=== PATIENT | male | born 1970 | race Caucasian/White ===

== ENCOUNTER 2020-05-05 13:39 | Outpatient (REF) | payer MEDICAID, SELFPAY ==
--- NOTE | ~2020-05-05 | US_ITS ---
EXAMINATION: US THYROID CLINICAL INFORMATION: Lymphadenitis. Concern for mass right thyroid. COMPARISON: None TECHNIQUE: Linear transducer kaiser-scale and color Doppler examination with attention to the region of the thyroid. FINDINGS: SIZE: Measurements of the thyroid lobes and nodules are given in sagittal, anteroposterior and transverse dimensions respectively. Right Thyroid Lobe: 4.4 x 1.8 x 1.9 cm, volume 7.7 mL. Parenchyma: The gland echotexture is homogeneous. Thyroid vascularity is normal. Left Thyroid Lobe: 4.2 x 1.8 x 1.7 cm, volume 6.6 mL. Parenchyma: The gland echotexture is homogeneous. Thyroid vascularity is normal. Isthmus: 0.4 cm in maximum AP dimension. No focal thyroid nodule is seen. NODES: There is a small right neck lymph node measuring 2.8 x 1.2 x 1.5 cm. There is an echogenic central medulla, suggestive of a normal lymph node. No other lymph node seen. US/US thyroid IMPRESSION: Unremarkable thyroid gland ultrasound. Benign right neck lymph node. ACR TI-RADS RECOMMENDATION REFERENCE: Ultrasound-guided fine-needle aspiration, followup ultrasound, no further follow up. * TR1 (0 point) and TR 2 (2 points): No FNA or follow up * TR3 (3 points): FNA if more than or equal to 2.5 cm in maximum dimension, follow up ultrasound in 1, 3 and 5 years if 1.5 to 2.4 cm in maximum dimension. * TR4 (4-6 points): FNA if more than or equal to 1.5 cm in maximum dimension, follow up ultrasound in 1, 2, 3 and 5 years if 1 to 1.4 cm in maximum dimension. * TR5 (more than or equal to 7 points): FNA if more than or equal to 1 cm in maximum dimension, follow up ultrasound every year for 5 years if 0.5 to 0.9 cm in maximum dimension. * TR3, TR4 or TR5 nodules that are below the size threshold for follow up receive no follow up.
== END 2020-05-05 13:40 | disposition home or self-care (01) ==
LOC: HO.US 13:39
PROVIDERS: Visit Provider Nurse Practitioner
DX: L04.1 Acute lymphadenitis of trunk (principal)
CPT/HCPCS: 76536

== ENCOUNTER 2022-12-07 09:37 | Outpatient (REF) | payer MEDICAID, SELFPAY ==
[2022-12-07 11:27] LABS: MANUAL DIFF FLAG NO
[2022-12-07 11:49] LABS: Basophils Percent Auto 0.3 % (0-2); Hemoglobin 10.2 g/dl (14.0-18.0); Imm Gran Abs Auto 0.02 X10*3/uL (0.00-0.03); Imm Gran Pct Auto 0.3 % (0.0-0.4); Lymphocytes Absolute Auto 1.3 X10*3/uL (1.2-4.9); Lymphocytes Percent Auto 20.9 % (20-40); Mean Corpuscular Hemoglobin 24.2 pg (27.0-33.0); Mean Corpuscular Volume 80.8 fL (80.0-98.0); Mean Platelet Volume 9.9 fL (9.4-12.4); Monocytes Absolute Auto 0.6 X10*3/uL (0.1-1.2); Monocytes Percent Auto 10.1 % (2-11); Neutrophils Absolute Auto 4.3 x10*3/uL (2.0-8.3); Neutrophils Percent Auto 68.4 % (45-73); Platelet Count 207 X10*3/uL (160-400); Red Blood Count 4.21 X10*6/uL (4.60-5.80); Red Cell Distribution Width 14.2 % (11.0-16.0); White Blood Count 6.3 X10*3/uL (4.8-10.8)
[2022-12-07 11:51] LABS: Estimated Average Glucose 103 mg/dL; Hemoglobin A1c % 5.2 % (<6.0)
[2022-12-07 11:59] LABS: Alanine Aminotransferase 21 U/L (0-40); Albumin Level 4.6 g/dL (3.5-5.0); Alkaline Phosphatase 109 U/L (39-117); Anion Gap 16 (12-20); Aspartate Amino Transferase 23 U/L (5-37); Bilirubin Total 0.3 mg/dL (0.0-1.0); Blood Urea Nitrogen 26 mg/dL (9-16); Calcium 10.2 mg/dL (8.4-10.2); Carbon Dioxide 30 mmol/L (22-29); Chloride 99 mmol/L (96-108); Cholesterol 197 mg/dL (<200); Estimated Glomerular Filt Rate 58; Glucose Random 106 mg/dL (60-115); HDL Cholesterol 60 mg/dL (>40); LDL Cholesterol Calculated 99 mg/dL (<100); Potassium 4.7 mmol/L (3.3-5.1); Sodium 140 mmol/L (135-145); Total Protein 8.5 g/dL (6.5-8.0); Triglycerides 191 mg/dL (<150)
[2022-12-07 12:24] LABS: TSH reflex Free T4 2.08 uIU/mL (0.32-4.0)
[2022-12-07 12:28] LABS: Prostate Specific Antigen 0.34 ng/mL (<0.05-4.0)
[2022-12-07 12:29] LABS: HIV AB/AG Nonreactive (Nonreactive); HIV Num 1 0.06 S/CO (0.00-0.99); ~HepC Num1 0.06 S/CO (0.00-0.79); ~Hepatitis C Antibody Nonreactive (Nonreactive)
[2022-12-10 09:48] LABS: RPR Rapid Plasma Reagin NON-REACTIVE (NON-REACTIVE)
== END 2022-12-07 09:38 | disposition home or self-care (01) ==
LOC: HO.HHCL 09:37
PROVIDERS: Visit Provider Nurse Practitioner Primary Care
DX: Z00.00 Encounter for general adult medical examination without abnormal findings (principal); Z11.4 Encounter for screening for human immunodeficiency virus [HIV]; Z12.5 Encounter for screening for malignant neoplasm of prostate; Z11.3 Encounter for screening for infections with a predominantly sexual mode of transmission; R23.2 Flushing; R06.02 Shortness of breath; I10 Essential (primary) hypertension; R73.01 Impaired fasting glucose; R39.16 Straining to void
CPT/HCPCS: 36415; 80053; 80061; 83036; 84153; 84443; 85025; 86592; 86803; 87389

== ENCOUNTER 2023-08-19 10:45 | Outpatient (REF) | payer MEDICAID, SELFPAY ==
[2023-08-19 11:50] LABS: Hematocrit 35.7 % (42.0-52.0); Hemoglobin 11.6 g/dl (14.0-18.0)
[2023-08-19 12:22] LABS: Anion Gap 13 (12-20); Blood Urea Nitrogen 27 mg/dL (9-16); Carbon Dioxide 29 mmol/L (22-29); Chloride 105 mmol/L (96-108); Estimated Glomerular Filt Rate 53; Glucose Random 92 mg/dL (60-115); Iron 76 mcg/dL (45-160); Percent Iron Saturation 23 % (15-50); Potassium 4.5 mmol/L (3.3-5.1); Sodium 142 mmol/L (135-145); Total Iron Binding Capacity 326 mcg/dL (228-428); Unsaturated Iron Binding 250 ug/dL
[2023-08-19 12:52] LABS: Vitamin B12 180 pg/mL (200-900)
== END 2023-08-19 10:46 | disposition home or self-care (01) ==
LOC: HO.HHCL 10:45
PROVIDERS: Visit Provider Nurse Practitioner Primary Care
DX: D64.9 Anemia, unspecified (principal); I10 Essential (primary) hypertension
CPT/HCPCS: 36415; 80048; 82607; 83540; 85014; 85018

== ENCOUNTER 2023-12-17 11:38 | Outpatient (AMB) | payer MEDICAID, SELFPAY ==
--- NOTE | 2023-12-17 11:40 | MHC.OFFVIS ---
Intake Visit Reasons: [facility] referral to Vascular to edema/ US Intake Note: New patient presents for edema and . States he has bilateral leg swelling. Also has bilateral ankle swelling. Accompanied by: Self / Same As Patient Allergies No Known Allergies Allergy (Unverified 11/05/19 16:28) none Allergy (Unknown, Uncoded 05/19/18 00:00) HPI HPI [facility] referral to Vascular to edema/ US: Details: [employer] used. Nima, a pleasant 53-year-old Kazakh-speaking only male patient, is presenting today for ongoing bilateral peripheral edema for over 6 months. He states he is also having pain which is worse with any activity. Complaints include pain over varicosities, swelling of lower extremities, cramping, fatigue, and heaviness of the lower extremities. It has been affecting their daily activities including walking, standing, and any activity. It is noted equally in both legs. Patient denies any previous venous surgery or injections. Patient denies any history of DVT/ PE. Patient denies any history of phlebitis. Trial of compression includes - compression stockings help a little bit; elevation only works minimally. They now present for vascular evaluation regarding their varicose veins. Review of Systems Const Reports as per HPI and Denies weakness ENT Reports Normal hearing present and Denies dizziness Card Reports as per HPI, Denies chest pain, Denies chest pain at rest, Denies chest pain with activity, Denies dyspnea and Denies dyspnea on exertion Resp Reports as per HPI, Denies cough, Denies dyspnea and Denies dyspnea on exertion GI Reports as per HPI, Denies abdominal pain, Denies nausea and Denies vomiting Musc Denies numbness Skin/Breast Reports as per HPI, Denies erythema and Denies wounds Neuro Reports Normal hearing present, Denies dizziness, Denies numbness, Denies Sensory deficit (Neuro) and Denies weakness Psych Reports no additional complaints Endo Reports no additional complaints Physical Exam Const General: healthy appearing and no acute distress Orientation/consciousness: patient oriented x3 HEENT Head: Yes normal to inspection Ears: hearing grossly normal bilaterally Mouth: Normal oral and palatal mucosa present Resp Effort & Inspection: normal respiratory effort and able to speak in complete sentences Auscultation: clear to auscultation bilaterally Cardio Jugular venous distension: no JVD Rate: regular rate Rhythm: regular rhythm Heart sounds: S1 normal heart sound present and S2 normal heart sound present Bruits: no abdominal aortic bruits, no carotid bruits, no femoral bruits and no renal bruits Peripheral pulses: Peripheral pulses 2+ throughout GI Inspection: Yes normal to inspection Palpation (GI): No Abdominal aortic bruit present Skin General skin exam: no rashes or lesions noted Wounds: no wounds Hair: normal Neuro General: patient oriented x3 Cranial nerves: Yes Normal hearing present Cognition (Neuro): normal cognition Gait exam (Neuro): Normal gait present Motor exam (neuro): 5/5 motor strength present throughout Sensory Exam: No Sensory deficit (Neuro) Extrem Other: Bilateral lower extremities: 1+ pitting edema with venous stasis dermatitis. Palpable DP pulses. Spider veins noted upper thigh areas bilaterally. CEAP: C - 4 E - primary A - superficial P - reflux General: Yes normal to inspection, Yes full ROM, Yes capillary refill normal and Yes normal gait Assessment & Plan Assessment & Plan (1) Varicose veins of both lower extremities with inflammation: Code(s): I83.11 - Varicose veins of right lower extremity with inflammation; I83.12 - Varicose veins of left lower extremity with inflammation Category: Medical Plan: Nima is presenting today with with over 6 months' worth of worsening pain in swelling in his bilateral lower extremities. He has used compression stockings with some relief and elevation with minimal relief. In short, the patient has evidence of venous insufficiency. I have discussed the pathophysiology with the patient. In addition I have provided informational material regarding venous disease to the patient. We have discussed conservative measures including compression, elevation, and exercise. I have also provided a handout (in Croatian, sandblaster paint sprayer explained) regarding appropriate use of compression stockings and where to purchase good compression stockings as well. I have taken the liberty of ordering venous insufficiency testing with the patient. They will follow up with me after testing. The patient had an opportunity to ask questions regarding the treatment plan. All questions were answered. No major barriers to understanding were identified. The patient expressed understanding and agreement with the above treatment plan. The patient is aware they should contact our office by phone for worsening of the current condition or the appearance of new symptoms. Thank you for allowing me to participate in the vascular care of this patient. If you have any questions or concerns regarding the treatment for the above condition please do not hesitate to contact me. The office telephone contact is [phone]. This note is constructed using voice recognition software. While every effort has been made to ensure accuracy, dredge mechanic errors may have been included. Thank you for allowing me to participate in the care of your patient. Yours sincerely, HA Estrada Orders: Orders US venous duplex LE BI 1 Week I83.11 - Varicose veins of right lower extremity with inflammation, I83.12 - Varicose veins of left lower extremity with inflammation Coding Level of Care Code New Pt New Pt Level 4 (89043) Patient Type New Diagnoses Varicose veins of both lower extremities with inflammation I83.11; I83.12
== END 2023-12-17 11:54 | disposition home or self-care (01) ==
LOC: HO.HVS 11:38
PROVIDERS: Visit Provider Surgery Vascular Surgery
DX: I83.11 Varicose veins of right lower extremity with inflammation (principal); I83.12 Varicose veins of left lower extremity with inflammation
CPT/HCPCS: 99203

== ENCOUNTER → 2023-12-17 11:38 | Outpatient (BNVA) | payer MEDICAID, SELFPAY | PROVIDERS: Visit Provider Surgery Vascular Surgery | DX: I83.11 Varicose veins of right lower extremity with inflammation (principal); I83.12 Varicose veins of left lower extremity with inflammation | CPT/HCPCS: 99202 ==

== ENCOUNTER 2024-01-01 13:02 | Outpatient (REF) | payer MEDICAID, SELFPAY ==
--- NOTE | ~2024-01-01 | US_ITS ---
EXAMINATION: US LOWER EXTREMITY VENOUS (REFLUX EXAM), BILATERAL CLINICAL INDICATION: Chronic venous insufficiency with varicose veins, inflammation COMPARISON: None. TECHNIQUE: Color flow triplex imaging and compression Doppler was performed to evaluate both the deep and the superficial systems bilaterally. To evaluate the superficial system, the examination was performed in the upright position. Color-flow Doppler ultrasound and compression ultrasound were utilized. In addition, maneuvers were utilized to demonstrate reflux. FINDINGS: 1. DEEP VENOUS ULTRASOUND OF THE RIGHT LOWER EXTREMITY: Common Femoral Vein: Compressible, normal respiratory variation and augmented flow. Femoral Vein: Compressible, normal color flow and augmentation. Popliteal Vein: Compressible, normal augmentation. Deep Reflux: There is no evidence of reflux in the deep system in either the common femoral vein, superficial femoral or the popliteal vein. There is no evidence of a Desai's cyst. 2. SUPERFICIAL ULTRASOUND WITH DOPPLER OF RIGHT LOWER EXTREMITY: GREAT SAPHENOUS VEIN: Saphenofemoral Junction: 0.7 cm; Reflux: 0 ms Proximal Thigh: 0.6 cm; Reflux: 0 ms Mid Thigh: 0.3 cm; Reflux: 0 ms Above Knee: 0.3 cm; Reflux: 0 ms At Knee: 0.6 cm; Reflux: 3456 ms Below Knee: 0.4 cm; Reflux: 3544 ms Mid Calf: 0.3 cm; Reflux: 0 ms Ankle: 0.3 cm; Reflux: 0 ms DUPLICATED MEDIAL GREAT SAPHENOUS VEIN: Diameter: 0.4 cm Reflux: None DUPLICATED LATERAL GREAT SAPHENOUS VEIN: Diameter: None imaged Reflux: NA SMALL SAPHENOUS VEIN: Saphenopopliteal Junction: 0.2 cm; Reflux: 0 ms Proximal: 0.2 cm; Reflux: 0 ms Distal: 0.2 cm; Reflux: 0 ms VEIN OF GIACOMINI: Size: NA Reflux: NA PERFORATORS: Location: None significant Size: NA Reflux: NA VARICOSITIES: Location: At knee and proximal calf off GSV Size: 0.3-0.4 cm Reflux: Ranging from 3284 to 3404 ms 3. DEEP VENOUS ULTRASOUND OF THE LEFT LOWER EXTREMITY: Common Femoral Vein: Compressible, normal respiratory variation and augmented flow. Femoral Vein: Compressible, normal color flow and augmentation. Popliteal Vein: Compressible, normal augmentation. Deep Reflux: There is no evidence of reflux in the deep system in either the common femoral vein, superficial femoral or the popliteal vein. There is no evidence of a Desai's cyst. 4. SUPERFICIAL ULTRASOUND WITH DOPPLER OF LEFT LOWER EXTREMITY: GREAT SAPHENOUS VEIN: Saphenofemoral Junction: 0.8 cm; Reflux: 0 ms Proximal Thigh: 0.5 cm; Reflux: 0 ms Mid Thigh: 0.3 cm; Reflux: 0 ms Above Knee: 0.3 cm; Reflux: 0 ms At Knee: 0.3 cm; Reflux: 0 ms Below Knee: 0.2 cm; Reflux: 0 ms Mid Calf: 0.2 cm; Reflux: 0 ms Ankle: 0.2 cm; Reflux: 0 ms DUPLICATED MEDIAL GREAT SAPHENOUS VEIN: Diameter: None imaged Reflux: NA DUPLICATED LATERAL GREAT SAPHENOUS VEIN: Diameter: 0.4 cm Reflux: None SMALL SAPHENOUS VEIN: Saphenopopliteal Junction: 0.3 cm; Reflux: 0 ms Proximal: 0.3 cm; Reflux: 0 ms Distal: 0.2 cm; Reflux: 0 ms VEIN OF GIACOMINI: Size: NA Reflux: NA PERFORATORS: Location: Proximal thigh Size: 0.3 cm Reflux: None VARICOSITIES: Location: Posterior Size: 0.3 cm Reflux: None US/US venous duplex LE BI IMPRESSION: 1. Right: Focal reflux in the great saphenous vein at the knee and below the knee with associated varicosities. 2. Left: No significant venous insufficiency or reflux. Electronically signed by: Obi Noe MD 01/29/2024 01:19 PM EST
== END 2024-01-01 13:03 | disposition home or self-care (01) ==
LOC: HO.US 13:02
PROVIDERS: Visit Provider Physician Assistant Surgical
DX: I83.11 Varicose veins of right lower extremity with inflammation (principal); I83.12 Varicose veins of left lower extremity with inflammation
CPT/HCPCS: 93970

== ENCOUNTER 2024-11-18 09:54 | Outpatient (REF) | payer MEDICAID, SELFPAY ==
--- OUTSIDE RECORDS SUMMARY | 2024-11-18 10:57 | XMS_ITS | Encounter Summary ---
Author Organization [employer] Address [address] [place] [address] Care Team Providers Care Silk Conditioner Name Role Phone Mita Mcneil Primary Care Provider [phone] Reason for Visit * Reason Comments Med Refill Encounter Details Date Type Department Care Team ([facility] st Contact Info) Description 10/13/2024 Refill [facility] MEDICINE [address], [place] [phone] Mita Mcneil ANP [address], [place] [phone] Essential hypertension Social History Tobacco Use Types Packs/Day Years Used Date Smoking Tobacco: Never Smokeless Tobacco: Never Alcohol Use Standard Drinks/Week Comments Yes 0 (1 standard drink = 0.6 oz pur e alcohol) Depression Answer Date Recorded Patient Health Questionnaire-9 Score 7 09/19/2023 Patient Health Questionnaire-9 Score 7 09/19/2023 Last PHQ-9: Questionnaire Data Not on file 0 09/19/2023 Housing Stability Answer Date Recorded What is your housing situation today? I have breana long 12/04/[address] you li ve. Do you have problems with any of the following? None of the above 12/04/2022 Food Insecurity Answer Date Recorded Within the past 12 months, y ou worried that your food would run out before you got money to buy more: Sometimes True 2024 Within the past 12 months,th e food you bought just didn't last and you didn't have enough money to get more: Sometimes True 03/10/2024 Transportation Answer Date Recorded In the past 12 months, has l ack of transportation kept you from medical appts, meetings, work or from getting things needed for daily living? Yes, it has kept me from medical appointments or getting medications. 09/10/2023 Utilities Answer Date Recorded In the past 12 months, has t he electric, gas, oil or water company threatened to shut off services in your home? No 12/04/2022 Depression Answer Date Recorded Patient Health Questionnaire-2 Score 3 09/19/2023 Internet Access Answer Date Recorded Internet Access Q1 Yes 09/15/2024 Internet Access Q2 Not on file 09/15/2024 Sex and Gender Information Value Date Recorded Sex Assigned at Male 12/18/2021 10:15 AM EDT Legal Sex Male 10:15 AM EDT Gender Identity Male 12/18/2021 10:15 AM EDT Sexual Orientation Straight 12/18/2021 10 :15 AM EDT documented as of this encounter Plan of Treatment Upcoming Encounters Date Type Department Care Team (Late st Contact Info) Description 01/11/2025 11:00 AM EST Office Visit [facility] MEDICINE [address] [place] [phone] Mita Mcneil ANP [address] [place] [phone] documented as of this encounter Visit Diagnoses Diagnosis Essential hypertension Unspecified essential hypertension documented in this encounter Additional Health Concerns Assessment Noted Time PHQ-9 Depression Total Score: 7 09/19/19 24 10:05 AM EDT documented as of this encounter Care Teams Silk Conditioner Relationship Specialty Start Date End Date Mita Mcneil ANP [address] [place] [id number] PCP - General Family Medicine 10/12/21 documented as of this encounter
--- OUTSIDE RECORDS SUMMARY | 2024-11-18 10:57 | XMS_ITS | Clinical Summary ---
Author Organization [employer] Address [address] [facility] [address] [place] [address] Care Team Providers Care Cable Tender Name Role Phone Mita Mcneil Primary Care Provider [phone] Allergies No known active allergies Medications Blood Pressure kitIndications:E ssential hypertension 1 kit in the morning. 1 kit 3 Active polyethylene glycol, PEG, 3350 (MiraLax) 17 GM/SCOOP powderIndication s:Chronic constipation take 1 scoop every day as needed for constipation, mixed with 8 oz. water, juice, soda, coffee or tea 510 g 2 3 Active ferrous sulfate 325 (65 Fe) MG tabletIndication s:Anemia, unspecified type TAKE 1 TABLET BY ORAL ROUTE EVERY OTHER DAY WITH VITAMIN C FOR IRON DEFICIENCY ANEMIA 90 tablet 1 5 Active Ascorbic Acid (vitamin C) 250 MG tabletIndication s:Anemia, unspecified type Take 1 tablet (250 mg) by mouth every other day. 45 tablet 5 Active polycarbophil (FiberCon) 625 MG tabletIndication s:Constipation, unspecified constipation type 0.5-1 tab once daily as needed for constipation 90 tablet 1 5 Active Cyanocobalamin (B-12) 1000 MCG tablet controlled-relea seIndications:Co balamin deficiency TOME 1 TABLETA POR VIA ORAL TODOS [place] 90 tablet 1 5 Active lisinopril-hydro CHLOROthiazide 20-25 MG tabletIndication s:Essential hypertension TOME 1 TABLETA POR VIA ORAL TODOS [place] 90 tablet 1 5 Active omeprazole (PriLOSEC) [address] capsuleIndicatio ns:Epigastric pain Take 1 capsule (20 mg) by mouth before breakfast and before evening meal. Do not crush or chew. 180 capsule 1 5 025 Active Diclofenac Sodium (Voltaren) 1 % gelIndications:C hronic bilateral low back pain without sciatica Apply up to 4x/d to affected joint(s) for pain/swelling 100 g 2 5 Active acetaminophen (Tylenol Extra Strength) 500 MG tabletIndication s:Chronic bilateral low back pain without sciatica Take 2 tablets (1,000 mg) by mouth every 8 (eight) hours if needed for mild pain or moderate pain. No more than 6 tabs per 24 hrs. 120 tablet 1 5 Active Active Problems Problem Noted Date Diagnosed Date Obesity (BMI 30-39.9) 05/27/2018 12/03/2022 Cobalamin deficiency 06/03/2012 12/03/2022 Epigastric pain 06/03/2012 12/03/2022 Essential hypertension 06/03/2012 Impaired fasting glucose 06/03/2012 023 Microalbuminuria 06/03/2012 12/03/2022 Polysubstance abuse 06/03/2012 12/03/2022 Vitamin D deficiency 06/03/2012 12/03/2022 Impotence of organic origin 07/31/201111/18 Opioid dependence 07/27/2011 12/03/2022 Encounters Date Type Department Care Team Description 10/26/2024 Telephone [facility] [address] [place] [phone] Mita Mcneil ANP chart prep 10/13/2024 Refill [facility] [address] [place] [address] Mita Mcneil ANP Essential hypertension from Last 3 Months Immunizations Immunization Administration Dates Next Due Hep A, Adult 10/05/2008,02/18/2008 Hep B, adult 02/18/2008,11/06/2006,02/21/1998 Influenza injectable quadriv alent preservative free 12/04/2022,03/30/2021,04/17/2018 Influenza, IIV3, injectable 01/04/2012 MMR 01/18/2007,02/21/1998 Pfizer Covid-19 Vaccine 12+ Bivalent 02/09/2022 Pneumococcal Polysaccharide PPSV23 02/16/2011 TD (adult), 2 Lf tetanus tox oid, preservative free, adsorbed 12/04/2022,01/18/2007 Tdap 02/16/2011 Varicella 02/16/2011 Social History Tobacco Use Types Packs/Day Years Used Date Smoking Tobacco: Never Smokeless Tobacco: Never Tobacco Cessation:Counseling Given: Not Answered Alcohol Use Standard Drinks/Week Comments Yes 0 [...] Orientation Straight 12/18/2021 10 :15 AM EDT Last Filed Vital Signs Vital Sign Reading Time Taken Comments Blood Pressure 140/92 07/24/2024 1:23 PM EDT Pulse 91 07/24/2024 1:20 PM EDT Temperature 36.2 C (97.1 F) 07/24/2024 1:20 PM EDT Respiratory Rate 20 07/24/2024 1:20 PM EDT Oxygen Saturation 96% 07/24/2024 1:20 PM EDT Inhaled Oxygen Concentration - - Weight 117 kg (257 lb 6.4 oz) 07/24/2024 1:20 PM EDT Height 177.8 cm (5' 10 ) 07/24/2024 1:20 PM EDT Body Mass Index 36.93 07/24/2024 1:20 PM EDT Plan of Treatment Upcoming Encounters Date Type Department Care Team (Late st Contact Info) Description 01/11/2025 11:00 AM EST Office Visit [facility] [address], [place] [phone] Mita Mcneil, ANP [address] [place], [place] [phone] Health Maintenance Due Date Last Done Comments CT Colonography 1971 FIT DNA/Cologuard 1971 FIT 1971 FOBT 1971 Sigmoidoscopy 1971 Pneumococcal Vaccine: 50+ Years (2 of 2 - PCV) 2021 02/16/2011 Zoster Vaccines (1 of 2) 2021 Colonoscopy 07/04/2023 07/03/2018 Colorectal Cancer Screening 07/04/2023 Depression Screening 09/18/2024 09/19/2023, 09/19/19 24 COVID-19 Vaccine ( season) 2024 02/09/2022, 10/10/2020, 08/30/2020 Influenza Vaccine (#1) 2024 3, 03/30/2021, 04/17/2018, Additional history exists SDOH Screening 03/10/2025 03/10/2024 Alcohol/Substance Use Screening 03/24/2025 03/24/2024 Disability Screening 07/24/2025 07/24/2024 Tobacco Screening 07/24/2025 07/24/2024 Lipid Panel 12/08/2027 12/07/2022, 04/11/2020 DTaP/Tdap/Td Vaccines (3 - Td or Tdap) 12/04/2032 12/04/2022, 02/16/2011, 01/18/2007 RSV Patients and Patients Aged 60 years or older (1 - 1-dose 75+ series) 2046 Hepatitis B Vaccines Completed 02/18/2008, 11/06/2006, 02/21/1998 Hepatitis A Vaccines Aged Out 10/05/2008, 02/18/20 08 No longer eligible based on patient's age to complete this topic HIV Screening Completed 12/07/2022 Hepatitis C Screening Completed 12/07/2022 HIB Vaccines Aged Out No longer eligi ble based on patient's age to complete this topic HPV Vaccines Aged Out No longer eligi ble based on patient's age to complete this topic IPV Vaccines Aged Out No longer eligi ble based on patient's age to complete this topic Meningococcal B Vaccine Aged Out No l onger eligible based on patient's age to complete this topic Meningococcal Vaccine Aged Out No xavier verna eligible based on patient's age to complete this topic RSV under 20 months Aged Out No longe r eligible based on patient's age to complete this topic Rotavirus Vaccines Aged Out No longer eligible based on patient's age to complete this topic Procedures Procedure Name Priority Date/Time Associated Diagnosis Comments HEPATITIS C AB W/REFL TO HCV RNA, QN, PCR Routine 12/07/2022 9:45 AM EDT Routine screening for STI (sexually transmitted infection) HIV ANTIBODY/ANTIGEN ([place] DPH) Routine 12/07/2022 9:45 AM EDT LIPID PANEL, STANDARD Routine 12/07/2022 9:45 AM EDT Essential hypertension HM COLONOSCOPY Routine 07/03/2018 from Last 3 Months or Most Recently Relevant to Health Maintenance Results * HIV Ab/Ag ([place] D[facility]) (12/07/2022 9:45 AM EDT) HIV AB/AG Nonreactive Nonreactive [facility] Comment:HIV-1 p24 Ag and/or HIV-1/HIV-2 Ab not detected.A test result that is nonreactive does not exclude thepossibility of exposure to or infection with HIV-1 and/orHIV-2. Nonreactive results in this assay for individualswith prior exposure to HIV-1 and/or HIV-2 may be due toantigen and antibody levels that are below the limit ofdetection of this assay.The [employer] HIV Ag/Ab Combo assay result andsupplemental assay results should be interpreted inconjunction with the patient's clinical presentation,history and other laboratory results. If the results areinconsistent with clinical evidence, additional testing issuggested to confirm the result. 12/07/2022 9:45 AM EDT 12/07/2022 11:24 AM EDT Mita Mcneil [facility] BLOOD ORDERABLES Final Resul t Performing Organization Address [facility] Co de Phone Number [facility] [address] [place] [phone] * Hepatitis C Antibody with Reflex to HCV, RNA, Quantitative, Real-Time PCR (12/07/2022 9:45 AM EDT) Hepatitis C Antibody Nonreactive Nonreactive [facility] Comment:Antibodies to HCV no t detected; does not exclude early acuteHCV infection. Blood Venous blood specimen / Unknown 12/07/2022 9:45 AM EDT 12/07/2022 11:24 AM EDT Mita Mcneil [facility] BLOOD ORDERABLES Final Resul t Performing Organization Address [facility] Co de Phone Number [facility] [address] [place] [phone] * (ABNORMAL) Lipid Panel, Standard (12/07/2022 9:45 AM EDT) Triglycerides 191(H) <150 mg/dL [facility] Comment:Desirable Triglyceri de: less than 150 mg/dLBorderline High Triglyceride 150-199 mg/dLHigh Triglyceride: 200-499 mg/dLVery High Triglyceride: greater than or equal to 5OO mg/dL Cholesterol 197 <200 mg/dL [facility] Comment:Desirable Cholestero l: less than 200 mg/dLBorderline High Cholesterol: 200-239 mg/dLHigh Cholesterol: greater than 239 mg/dL LDL Cholesterol Calculated 99 <100 mg/dL [facility] Comment:Desirable LDL: less than 100 mg/dLNear Optimal/Above Optimal LDL: 110- 129 mg/dLBorderline High LDL: 130-159 mg/dLHigh LDL: 160-189 mg/dLVery High LDL: greater than or equal to 190 mg/dL HDL Cholesterol 60 >40 mg/dL [facility] Comment:Desirable HDL: great er than 40 mg/dL Note: This HDL assay may give artificially low results in patients with liver disease. Blood Venous blood specimen / Unknown 12/07/2022 9:45 AM EDT 12/07/2022 11:24 AM EDT [facility] BLOOD ORDERABLES Final Resul t [facility] [address] [place] [address] [phone] * (ABNORMAL) Colonoscopy (07/03/2018) Colonoscopy Abnormal(A ) Normal Historical Provider HEALTH MAINTENANCE Final Result from Last 3 Months or Most Recently Relevant to Health Maintenance Insurance [facility] C3 * Guarantor: Nima Gee Account Type Relation to Patient Date of Phone Billing Address Personal/Family Self [address] [place], [place] Care Teams Cable Tender Relationship Specialty Start Date End Date Mita Mcneil ANP [address] [place] [phone] PCP - General Family Medicine 10/12/21
[2024-11-18 11:05] LABS: MANUAL DIFF FLAG NO
[2024-11-18 11:25] LABS: Hematocrit 35.5 % (42.0-52.0); Hemoglobin 11.6 g/dl (14.0-18.0); Imm Gran Abs Auto 0.01 X10*3/uL (0.00-0.03); Imm Gran Pct Auto 0.1 % (0.0-0.4); Lymphocytes Absolute Auto 1.6 X10*3/uL (1.2-4.9); Mean Corpuscular HGB Conc 32.7 g/dl (31.0-36.0); Mean Corpuscular Hemoglobin 28.6 pg (27.0-33.0); Mean Corpuscular Volume 87.4 fL (80.0-98.0); NRBC Abs Auto 0.000 X10*3/uL (0.0-0.012); NRBC Pct Auto 0.0 /100WBC (0.0-0.2); Platelet Count 207 X10*3/uL (160-400); Red Blood Count 4.06 X10*6/uL (4.60-5.80); White Blood Count 7.5 X10*3/uL (4.8-10.8)
[2024-11-18 11:51] LABS: Alanine Aminotransferase 24 U/L (0-40); Albumin Level 4.5 g/dL (3.5-5.0); Alkaline Phosphatase 124 U/L (39-117); Anion Gap 14 (12-20); Aspartate Amino Transferase 36 U/L (5-37); Blood Urea Nitrogen 43 mg/dL (9-16); Calcium 9.5 mg/dL (8.4-10.2); Carbon Dioxide 25 mmol/L (22-29); Chloride 104 mmol/L (96-108); Cholesterol 158 mg/dL (<200); Estimated Glomerular Filt Rate 29; HDL Cholesterol 29 mg/dL (>40); Potassium 5.0 mmol/L (3.3-5.1); Sodium 138 mmol/L (135-145); Total Protein 8.0 g/dL (6.5-8.0); Triglycerides 161 mg/dL (<150)
[2024-11-18 12:07] LABS: Vitamin B12 229 pg/mL (200-900)
== END 2024-11-18 09:55 | disposition home or self-care (01) ==
LOC: HO.HHCL 09:54
PROVIDERS: PCP Nurse Practitioner Primary Care; Visit Provider Nurse Practitioner Primary Care
DX: Z00.00 Encounter for general adult medical examination without abnormal findings (principal); D64.9 Anemia, unspecified; E53.8 Deficiency of other specified B group vitamins; E66.812 Obesity, class 2; R73.01 Impaired fasting glucose; I10 Essential (primary) hypertension; Z68.36 Body mass index [BMI] 36.0-36.9, adult
CPT/HCPCS: 36415; 80048; 80061; 80076; 82607; 83036; 84443; 85025

== ENCOUNTER 2025-01-11 11:56 | Outpatient (REF) | payer MEDICAID, SELFPAY ==
--- OUTSIDE RECORDS SUMMARY | 2025-01-11 11:00 | XMS_ITS | Encounter Summary ---
Author Organization [employer] Address [address] [place] [address] [address] [place] [address] Care Team Providers Care Billboard Mechanic Name Role Phone Mita Mcneil Primary Care Provider [phone] Reason for Referral * Consultation (Routine) - Authorized Specialty Diagnoses / Procedures Referred By Linh carter Referred To Contact Pharmacy Diagnoses Essential hypertension Mita Mcneil ANP [address] [place] [address] Phone: tel: fax: Referral ID Status Reason Start Date Expiration Date Visits Requested Visits Authorized [id number] Authorized Continuity of Care 01/11/2025 01/11/2026 6 6 * Consultation (Routine) - Authorized Specialty Diagnoses / Procedures Referred By Linh carter Referred To Contact Behavioral Health Diagnoses Depression, unspecified depression type Procedures Referral to Behavioral Health Mita Mcneil ANP [address] [place] [address] Phone: tel: fax: Referral ID Status Reason Start Date Expiration Date Visits Requested Visits Authorized [id number] Authorized Specialty Services Required 01/11/2026 1 1 * Consultation (Routine) - Closed Specialty Diagnoses / Procedures Referred By Linh carter Referred To Contact Physical Therapy Diagnoses Chronic bilateral low back pain without sciatica Mita Mcneil ANP [address] [place] [address] Phone: tel: fax: [facility] [place] Physical Therapy [address] [place] [address] Phone: tel: fax: Referral ID Status Reason Start Date Expiration Date V isits Requested Visits Authorized [id number] Closed Specialty Services Required 01/11/2025 01/11/2026 20 20 Reason for Visit * Reason Comments Follow-up Encounter Details Date Type Department Care Team ([facility] st Contact Info) Description 01/11/2025 11:00 AM EST Office Visit [facility] [address] [place] [address] Mita Mcneil ANP [address] [place] [address] Essential hypertension (Primary Dx); Class 2 severe obesity with serious comorbidity and body mass index (BMI) of 38.0 to 38.9 in adult, unspecified obesity type; Elevated serum creatinine; B12 deficiency; Anemia, unspecified type; Chronic bilateral low back pain without sciatica; Gastroesophageal reflux disease, unspecified whether esophagitis present; Unable to read or write; Depression, unspecified depression type; Anemia, unspecified type Social History Tobacco Use Types Packs/Day Years Used Date Smoking Tobacco: Never Smokeless Tobacco: Never Alcohol Use Standard Drinks/Week Comments Yes 0 (1 standard drink = 0.6 oz pur e alcohol) Depression Answer Date Recorded Patient Health Questionnaire-9 Score 16 01/11/2025 Patient Health Questionnaire-9 Score 16 01/11/2025 Last PHQ-9: Questionnaire Data Not on file 1 03/13/2024 Housing Stability Answer Date Recorded What is [...] Answer Date Recorded Patient Health Questionnaire-2 Score 4 01/11/2025 Internet Access Answer Date Recorded Internet Access Q1 Yes 09/15/2024 Internet Access Q2 Not on file 09/15/2024 Sex and Gender Information Value Date Recorded Sex Assigned at Male 12/18/2021 10:15 AM EDT Legal Sex Male 10:15 AM EDT Gender Identity Male 12/18/2021 10:15 AM EDT Sexual Orientation Straight 12/18/2021 10 :15 AM EDT documented as of this encounter Last Filed Vital Signs Vital Sign Reading Time Taken Comments Blood Pressure 140/94 01/11/2025 12:20 PM EST Pulse 73 01/11/2025 11:11 AM EST Temperature 37.3 C (99.1 F) 01/11/2025 11:11 AM EST Respiratory Rate 12 01/11/2025 11:11 AM EST Oxygen Saturation 95% 01/11/2025 11:11 AM EST Inhaled Oxygen Concentration - - Weight 122 kg (269 lb) 01/11/2025 11:11 AM EST Height 177.8 cm (5' 10 ) 01/11/2025 11:11 AM EST Body Mass Index 38.6 01/11/2025 11:11 AM EST documented in this encounter Functional Status * Over the past 2 weeks, how often have you been bothered by any of the following problems? Question Answer Date of Assessment Author Patient Health Questionnaire -2 Score 4 01/11/2025 11:56 AM EST Lawrence Rosario MA * Little interest or pleasure in doing things Answer Date of Assessment Author Nearly every day 01/11/2025 11:56 AM EST Lawrence Rosario MA * Feeling down, depressed, or hopeless Answer Date of Assessment Author Several days 01/11/2025 11:56 AM EST Lawrence Rosario MA * Trouble falling or staying asleep, or sleeping too much Answer Date of Assessment Author Nearly every day 01/11/2025 11:56 AM EST Lawrence Rosario MA * Feeling tired or having little energy Answer Date of Assessment Author Nearly every day 01/11/2025 11:56 AM Lawrence Segovia MA * Poor appetite or overeating Answer Date of Assessment Author Nearly every day 01/11/2025 11:56 AM Lawrence Segovia MA * Feeling bad about yourself - or that you are a failure or have let yourself or your family down Answer Date of Assessment Author Several days 01/11/2025 11:56 AM Lawrence Segovia MA * Trouble concentrating on things, such as reading the newspaper or watching television Answer Date of Assessment Author Several days 01/11/2025 11:56 AM Lawrence Segovia MA * Moving or speaking so slowly that other people could have noticed? Or the opposite - being so fidgety or restless that you have been moving around a lot more than usual. Answer Date of Assessment Author Several days 01/11/2025 11:56 AM Lawrence Segovia MA * Thoughts that you would be better off or hurting yourself in some way Answer Date of Assessment Author Not at all 01/11/2025 11:56 AM Lawrence Segovia MA * Patient Health Questionnaire-9 Score Answer Date of Assessment Author 16 01/11/2025 11:56 AM Lawrence Segovia MA * Over the last 2 weeks, how often have you been bothered by any of the following problems? Question Answer Date of Assessment Author Feeling nervous, anxious, or on edge 0 01/11/2025 11:57 AM Lawrence Segovia MA Not being able to stop or co ntrol worrying 0 01/11/2025 11:57 AM Lawrence Segovia MA Worrying too much about diff erent things 0 01/11/2025 11:57 AM Lawrence Segovia MA Trouble relaxing 0 01/11/2025 11:57 AM Lawrence Segovia MA Being so restless that it is hard to sit still 0 01/11/2025 11:57 AM Lawrence Segovia MA Becoming easily annoyed or irritable 0 01/11/2025 11:57 AM Lawrence Segovia MA Feeling afraid as if somethi ng awful might happen 0 01/11/2025 11:57 AM Lawrence Segovia MA ELVER-7 Total Score 0 01/11/2025 11:57 AM Lawrence Segovia MA * How difficult have these problems made it for you to do your work, take care of things at home, or get along with other people? Answer Date of Assessment Author Very difficult 01/11/2025 11:56 AM Lawrence Segovia MA documented as of this encounter Progress Notes * SAGE Apodaca - 01/11/2025 11:00 AM EST SUBJECTIVE: Nima Shelby is a 54 y.o. year old male who presents for chronic disease management. PMH B12 deficiency, GERD, hypertension, IFG, microalbuminuria, polysubstance abuse, elevated BMI, illiteracy Referred for c-scope 03/2024 Declines IZs today Acute Concerns: Suspected MYRIAM in November, we referred him to [facility] ED but no notes in chart. He says he did go, but told them he had a kidney infection and they told him his labs and urine were fine. We will request notes. Kidney Function Abnormality - Hospital visit in November 2024 for elevated kidney function - No infection identified during hospital visit - No IV fluids administered during hospital visit Back Pain - Reports low back pain. Does not radiate to legs but does have numbness as below. Worse w/ walking, going up stairs. Would like to do PT. Numbness and Tingling - Reports pain, numbness, and tingling in his feet/legs. Vitamin B12 Deficiency - Previously advised to take vitamin B12, has not been taking. Misc - Assisted by daughter or family member with daily activities - cannot read or write - reports SOB going up stairs, no dizziness, no CP - non-smoker - +depression but declines clinician today. Accepts phone call. Lawrence VALDEZ provided Irish interpretation. Social History Social History Narrative Not on file Problem List[1] Surgical History[2] Family History[3] Review of Systems Constitutional: Negative for chills and fever. HENT: Negative for sore throat. Respiratory: Positive for shortness of breath. Negative for cough and wheezing. Cardiovascular: Negative for chest pain and palpitations. Gastrointestinal: Negative for constipation and diarrhea. Endocrine: Negative for polydipsia, polyphagia and polyuria. Genitourinary: Negative for dysuria. Musculoskeletal: Positive for back pain. Negative for arthralgias. OBJECTIVE: Vitals: 01/11/25 1111 01/11/25 1141 01/11/25 1220 BP: (!) 160/100 (!) 146/96 (!) 140/94 BP Location: Left arm Left arm Left arm Patient Position: Sitting Sitting Sitting BP Cuff Size: Large adult Large adult Large adult Pulse: 73 Resp: 12 Temp: 99.1 ??F (37.3 ??C) TempSrc: Oral SpO2: 95% Weight: 269 lb (122 kg) Height: 5' 10 (1.778 m) Physical Exam Constitutional: General: He is not in acute distress. Appearance: Normal appearance. He is obese. He is not ill-appearing. HENT: Head: Normocephalic and atraumatic. Eyes: General: No scleral icterus. Extraocular Movements: Extraocular movements intact. Pupils: Pupils are equal, round, and reactive to light. Cardiovascular: Rate and Rhythm: Normal rate and regular rhythm. Pulmonary: Effort: Pulmonary effort is normal. No accessory muscle usage or respiratory distress. Musculoskeletal: Right lower leg: No edema. Left lower leg: No edema. Skin: General: Skin is warm and dry. Neurological: Mental Status: He is alert and oriented to person, place, and time. Mental status is at baseline. Cranial Nerves: No cranial nerve deficit. Psychiatric: Mood and Affect: Mood normal. Behavior: Behavior normal. ASSESSMENT/PLAN Nima was seen today for follow-up. Diagnoses and all orders for this visit: Essential hypertension (Primary) BP above goal < 120/80. Remains elevated on repeat. has been out of meds. Will request records from [facility] for ED visit s/p renal labs below suspicious for MYRIAM. START amlodipine 5mg once daily. Re-start lisinopril-hydrochlorothiazide pending renal labs update Continue to encourage low salt diet, regular exercise, home BP monitoring, compliance with medications. Call clinic if BP is frequently >150/90 Go to ED/call 911 if > 170/100 and having sx such as BERNARD, visual changes, chest pain, SOB Last renal function: Lab Results Component Value Date GLUCOSE 99 11/18/2024 NA 138 11/18/2024 K 5.0 11/18/2024 CO2 25 11/18/2024 CL 104 11/18/2024 BUN 43 (H) 11/18/2024 CREATININE 2.38 (H) 11/18/2024 EGFR 29 11/18/2024 No results found for: MICROALBCREA No results found for: MICROALBCREU STF 1mo, BP check w/ RN - amLODIPine (Norvasc) 5 MG tablet; Take 1 tablet (5 mg) by mouth in the morning. Class 2 severe obesity with serious comorbidity and body mass index (BMI) of 38.0 to 38.9 in adult,unspecified obesity type Lifestyle recommendations: be as active as able, ideally exercise 150min moderate intensity or 75min vigorous intensity weekly; increase intake of vegetables, fruits, whole grains, fish. Try to minimize intake of sugary or greasy food and drink. Elevated serum creatinine Comments: request records from [facility], repeat today. Start CCB for BP as renal function overdue for update. Orders: - Basic Metabolic Panel; Future B12 deficiency W/ neuropathic symptoms in BLE. Start wkly injections x 4 then SL tablet daily. RN visit for injection scheduled. - cyanocobalamin (Vitamin B-12) injection 1,000 mcg - cyanocobalamin (Vitamin B-12) 1000 MCG/ML injection; Inject 0.1 mL (100 mcg) into the muscle every 7 (seven) days. - Cyanocobalamin 1000 MCG sublingual tablet; Place 1 tablet under the tongue Once per day. Do not start before February 08, 2025. Anemia, unspecified type Comments: Suspect contributing to SOB. +h/o iron def anemia, labs to be updated. Re-start iron and vit C supplement. Orders: - CBC auto differential; Future - Iron And Total Iron Binding Capacity; Future - ferrous sulfate 325 (65 Fe) MG tablet; take 1 tablet by oral route every other day with vitamin Cfor iron deficiency anemia Chronic bilateral low back pain without sciatica - lidocaine (Lidoderm) 5 % patch; Apply 1 patch topically Once per day. Remove & discard patch within 12 hours or as directed by MD. - Referral to Physical Therapy; Future Gastroesophageal reflux disease, unspecified whether esophagitis present Re-start: - omeprazole (PriLOSEC) [address] capsule; Take 1 capsule (20 mg) by mouth before breakfast and before evening meal. Do not crush or chew. Depression Patient Health Questionnaire-9 Score: 16 (01/11/2025 11:56 AM) Patient Health Questionnaire-2 Score: 4 (01/11/2025 11:56 AM) Thoughts that you would be better off or hurting yourself in some way: Not at all (01/11/2025 11:56 AM) referral for call, declines to see clinician today Unable to read or write MTM scheduled for assistance w/ meds/medbox Future Appointments Date Time Provider Department Center 01/19/2025 10:[address] [facility] SONNY TEAM NURSE MEDICINE [facility] 01/29/2025 9:00 AM [address]D [address] [facility] This note was drafted using Ambient (AI) technology. The patient/patient's guardian has been informed and has consented to the use of this technology: Yes Based on our discussion, I have outlined the following instructions for you: - Start taking amlodipine as prescribed to help lower your blood pressure. - Get blood work and provide a urine sample to check your kidney function. - Do not take any pain medications except acetaminophen until your kidney function is checked. - You will receive a vitamin B12 injection once a week for four weeks. After that, you will take vitamin B12 under your tongue every day. - Get the recommended blood tests to check for anemia. - Begin physical therapy to help with your back pain. - Use lidocaine patches as prescribed to help relieve your back pain. Next appointment(s): - Nurse appointment today for first vitamin B12 injection, then weekly injections for 4 weeks. Thank you again for your visit, and we look forward to supporting you in your journey to better health. Follow Up: as above Medications Ordered Prior to Encounter[4] [1] Patient Active Problem List Diagnosis B12 deficiency Epigastric pain Essential hypertension Impaired fasting glucose Impotence of organic origin Microalbuminuria Obesity (BMI 30-39.9) Opioid dependence (HCC) Polysubstance abuse (HCC) Vitamin D deficiency Class 2 severe obesity with serious comorbidity and body mass index (BMI) of 38.0 to 38.9 in adult Gastroesophageal reflux disease Chronic bilateral low back pain without sciatica Unable to read or write [2] History reviewed. No pertinent surgical history. [3] No family history on file. [4] Current Outpatient Medications on File Prior to Visit Medication Sig Dispense Refill acetaminophen (Tylenol Extra Strength) 500 MG tablet Take 2 tablets (1,000 mg) by mouth every 8 (eight) hours if needed for mild pain or moderate pain. No more than 6 tabs per 24 hrs. 120 tablet 1 Ascorbic Acid (vitamin C) 250 MG tablet Take 1 tablet (250 mg) by mouth every other day. 45 tablet 0 Blood Pressure kit 1 kit in the morning. 1 kit 0 Diclofenac Sodium (Voltaren) 1 % gel Apply up to 4x/d to affected joint(s) for pain/swelling 100 g 2 polycarbophil (FiberCon) 625 MG tablet 0.5-1 tab once daily as needed for constipation 90 tablet 1 polyethylene glycol, PEG, 3350 (MiraLax) 17 GM/SCOOP powder take 1 scoop every day as needed for constipation, mixed with 8 oz. water, juice, soda, coffee or tea 510 g 2 [DISCONTINUED] Cyanocobalamin (B-12) 1000 MCG tablet controlled-release TOME 1 TABLETA POR VIA ORALTODOS LOS NOEL 90 tablet 1 [DISCONTINUED] ferrous sulfate 325 (65 Fe) MG tablet TAKE 1 TABLET BY ORAL ROUTE EVERY OTHER DAY WITH VITAMIN C FOR IRON DEFICIENCY ANEMIA 90 tablet 1 [DISCONTINUED] lisinopril-hydroCHLOROthiazide 20-25 MG tablet TOME 1 TABLETA POR VIA ORAL TODOS LOSDIAS 90 tablet 1 [DISCONTINUED] omeprazole (PriLOSEC) [address] capsule Take 1 capsule (20 mg) by mouth before breakfast and before evening meal. Do not crush or chew. 180 capsule 1 No current facility-administered medications on file prior to visit. documented in this encounter Plan of Treatment Upcoming Encounters Date Type Department Care Team (Late st Contact Info) Description 01/19/2025 10:30 AM EST Clinical Support [facility] [address] [place] [phone] 01/29/2025 9:00 AM EST Medication Management [address] [address] Swetha Mac, PharmD [address] [place] [address] Scheduled Referrals Name Type Priority Associated Diagnoses Orde r Schedule Referral to Physical Therapy Outpatient Referral Routine Chronic bilateral low back pain without sciatica Expected: 01/11/2025 (Approximate), Expires: 01/11/2026 Referral to Pharmacy [place] Outpatient Referral Routine Essential hypertension Ordered: 01/11/2025 documented as of this encounter Procedures Procedure Name Priority Date/Time Associated Diagnosis Comments CBC WITH AUTO DIFFERENTIAL Routine 01/11/2025 12:07 PM EST Anemia, unspecified type IRON AND TOTAL IRON BINDING CAPACITY Routine 01/11/2025 12:07 PM EST Anemia, unspecified type BASIC METABOLIC PANEL Routine 01/11/2025 12:07 PM EST Elevated serum creatinine documented in this encounter Results * (ABNORMAL) Iron And Total Iron Binding Capacity (01/11/2025 12:07 PM EST) Pathologist [facility] Iron 41(L) 45 - 160 mcg/dL [facility] Total Iron Binding Capacity 268 228 - 428 mcg/dL [facility] Percent Iron Saturation 15 15 - 50 % [facility] Unsaturated Iron Binding 227 ug/dL [facility] Blood Venous blood specimen / Unknown 01/11/2025 12:07 PM EST 01/11/2025 1:04 PM EST [facility] LAB BLOOD ORDERABLES Final Resul t [facility] [address] [place] [address] [phone] * (ABNORMAL) CBC auto differential (01/11/2025 12:07 PM EST) [facility] White Blood Count 9.8 4.8 - 10.8 X10*3/uL [facility] Red Blood Count 4.05(L) 4.60 - 5.80 X10*6/uL [facility] Hemoglobin 11.3(L) 14.0 - 18.0 g/dl [facility] Hematocrit 36.3(L) 42.0 - 52.0 % [facility] Mean Corpuscular Volume 89.6 80.0 - 98.0 fL [facility] Mean Corpuscular Hemoglobin 27.9 27.0 - 33.0 pg [facility] Mean Corpuscular HGB Conc 31.1 31.0 - 36.0 g/dl [facility] Red Cell Distribution Width 12.3 11.0 - 16.0 % [facility] Platelet Count 212 160 - 400 X10*3/uL [facility] Mean Platelet Volume 10.7 9.4 - 12.4 fL [facility] Neutrophils Percent Auto 72.5 45 - 73 % [facility] Imm Gran Pct Auto 0.3 0.0 - 0.4 % [facility] Lymphocytes Percent Auto 13.5(L) 20 - 40 % [facility] Monocytes Percent Auto 6.1 2 - 11 % [facility] Eosinophils Percent Auto 7.4(H) 0 - 4 % [facility] Basophils Percent Auto 0.2 0 - 2 % [facility] NRBC Pct Auto 0.0 0.0 - 0.2 /100WBC [facility] Neutrophils Absolute Auto 7.1 2.0 - 8.3 x10*3/uL [facility] Imm Gran Abs Auto 0.03 0.00 - 0.03 X10*3/uL [facility] Lymphocytes Absolute Auto 1.3 1.2 - 4.9 X10*3/uL [facility] Monocytes Absolute Auto 0.6 0.1 - 1.2 X10*3/uL [facility] Eosinophils Absolute Auto 0.7(H) 0.0 - 0.4 X10*3/uL [facility] Basophils Absolute Auto 0.0 0.0 - 0.2 X10*3/uL [facility] NRBC Abs Auto 0.000 0.0 - 0.012 X10*3/uL [facility] Blood Venous blood specimen / Unknown 01/11/2025 12:07 PM EST 01/11/2025 1:04 PM EST Mita Mcneil ANP LAB BLOOD ORDERABLES Final Resul t Performing Organization Address [facility] de Phone Number [facility] [address] [place] [address] [phone] * (ABNORMAL) Basic Metabolic Panel (01/11/2025 12:07 PM EST) Sodium 143 135 - 145 mmol/L [facility] Potassium 4.8 3.3 - 5.1 mmol/L [facility] Chloride 104 96 - 108 mmol/L [facility] Carbon Dioxide 27 22 - 29 mmol/L [facility] Anion Gap 17 12 - 20 [facility] Urea Nitrogen (BUN) 22(H) 9 - 16 mg/dL [facility] Creatinine, Serum 1.23 0.5 - 1.4 mg/dL [facility] Estimated Glomerular Filt Rate >60 [facility] Comment:Chronic Kidney Disea se: Estimated GFR < 60 mL/min/1.14q0Ozchlw Kidney Disease: Estimated GFR < 15 mL/min/1.73m2 Glucose 94 60 - 115 mg/dL [facility] Calcium 10.0 8.4 - 10.2 mg/dL [facility] Blood Venous blood specimen / Unknown 01/11/2025 12:07 PM EST 01/11/2025 1:04 PM EST Mita Mcneil ANP LAB BLOOD ORDERABLES Final Resul t Performing Organization Address [facility] Co de Phone Number [facility] [address] [place] [address] [phone] documented in this encounter Visit Diagnoses Diagnosis Essential hypertension- Primary Unspecified essential hypertension Class 2 severe obesity with serious comorbidity and body mass index (BMI) of 38.0 to 38.9 in adult, unspecified obesity type Elevated serum creatinine Other nonspecific findings on examination of blood B12 deficiency Anemia, unspecified type Chronic bilateral low back pain without sciatica Gastroesophageal reflux disease, unspecified whether esophagitis present Unable to read or write Depression, unspecified depression type documented in this encounter Additional Health Concerns Assessment Noted Time PHQ-9 Depression Total Score: 16 025 11:56 AM EST documented as of this encounter Care Teams Billboard Mechanic Relationship Specialty Start Date End Date Mita Mcneil ANP [address] [place] [address] PCP - General Family Medicine 10/12/21 documented as of this encounter
[2025-01-11 13:11] LABS: MANUAL DIFF FLAG NO
[2025-01-11 13:19] LABS: Hematocrit 36.3 % (42.0-52.0); Hemoglobin 11.3 g/dl (14.0-18.0); Imm Gran Abs Auto 0.03 X10*3/uL (0.00-0.03); Imm Gran Pct Auto 0.3 % (0.0-0.4); Lymphocytes Absolute Auto 1.3 X10*3/uL (1.2-4.9); Mean Corpuscular HGB Conc 31.1 g/dl (31.0-36.0); Mean Corpuscular Hemoglobin 27.9 pg (27.0-33.0); Mean Corpuscular Volume 89.6 fL (80.0-98.0); NRBC Abs Auto 0.000 X10*3/uL (0.0-0.012); NRBC Pct Auto 0.0 /100WBC (0.0-0.2); Platelet Count 212 X10*3/uL (160-400); Red Blood Count 4.05 X10*6/uL (4.60-5.80); White Blood Count 9.8 X10*3/uL (4.8-10.8)
[2025-01-11 15:46] LABS: Anion Gap 17 (12-20); Blood Urea Nitrogen 22 mg/dL (9-16); Calcium 10.0 mg/dL (8.4-10.2); Carbon Dioxide 27 mmol/L (22-29); Chloride 104 mmol/L (96-108); Estimated Glomerular Filt Rate > 60; Iron 41 mcg/dL (45-160); Percent Iron Saturation 15 % (15-50); Potassium 4.8 mmol/L (3.3-5.1); Sodium 143 mmol/L (135-145); Total Iron Binding Capacity 268 mcg/dL (228-428); Unsaturated Iron Binding 227 ug/dL
--- OUTSIDE RECORDS SUMMARY | 2025-01-11 15:55 | XMS_ITS | Encounter Summary ---
Author Organization [employer] Address [address] [place] [address] Care Team Providers Care Pasteurizer Helper Name Role Phone Mita Mcneil Primary Care Provider [phone] Encounter Details Date Type Department Care Team ([facility] st Contact Info) Description 01/11/[address] [facility] MEDICINE [address] [place], [place] [phone] Mita Mcneil ANP [address] [place], [place] [phone] Social History Tobacco Use Types Packs/Day Years [...] AM EDT documented as of this encounter Functional Status * Over the past 2 weeks, how often have you been bothered by any of the following problems? Question Answer Date of Assessment Author Patient Health Questionnaire -2 Score 4 01/11/2025 11:56 AM Lawrence Segovia MA * Little interest or pleasure in doing things Answer Date of Assessment Author Nearly every day 01/11/2025 11:56 AM Lawrence Segovia MA * Feeling down, depressed, or hopeless Answer Date of Assessment Author Several days 01/11/2025 11:56 AM Lawrence Segovia MA * Trouble falling or staying asleep, or sleeping too much Answer Date of Assessment Author Nearly every day 01/11/2025 11:56 AM Lawrence Segovia MA * Feeling tired or having little energy Answer Date of Assessment Author Nearly every day 01/11/2025 11:56 AM Lawernce Segovia MA * Poor appetite or overeating [...] Segovia MA documented as of this encounter Miscellaneous Notes * Telephone Encounter - Lawrence Rosario MA - 01/11/2025 1:52 PM EST Patient was not seen in [facility] in November, patient went to [facility] on 11/24/2024. Notes printed and Given to PCP * Telephone Encounter - Lawrence Rosario MA - 01/11/2025 1:52 PM EST ----- Message from Mita Mcneil sent at 01/11/2025 12:31 PM EST ----- Hello! Can you please check [facility] records for ED visit and labs from November? Thanks! documented in this encounter Plan of Treatment Upcoming Encounters Date Type Department Care Team (Late st Contact Info) Description 01/19/2025 10:30 AM EST Clinical Support [address] [address] 01/29/2025 9:00 AM EST Medication Management [address] [address] Swetha Mac, PharmD [address] [place] [id number] documented as of this encounter Visit Diagnoses Not on filedocumented in this encounter Additional Health Concerns Assessment Noted Time PHQ-9 Depression Total Score: 16 025 11:56 AM EST documented as of this encounter Care Teams Pasteurizer Helper Relationship Specialty Start Date End Date Mita Mcneil ANP [address] [place] [id number] PCP - General Family Medicine 10/12/21 documented as of this encounter
--- OUTSIDE RECORDS SUMMARY | 2025-01-11 15:55 | XMS_ITS | Encounter Summary ---
Author Organization [employer] Address [address] [place] [address] Care Team Providers Care Rotary Drum Dyer Name Role Phone Mita Mcneil Primary Care Provider [phone] Encounter Details Date Type Department Care Team (Late st Contact Info) Description 01/08/2025 Telephone [facility] [address] [place], [place] [phone] Mary Multani MA Social History Tobacco Use Types Packs/Day Years [...] AM EDT documented as of this encounter Miscellaneous Notes * Telephone Encounter - Mary Multani MA - 01/08/2025 10:49 AM EST Chart Prep Labs: done Images: ordered 07/24/24 Referrals: not applicable Vaccines due: Covid, Flu, and PCV20 Screenings: colonoscopy Overdue care gaps: PHQ-9 documented in this encounter Plan of Treatment Upcoming Encounters Date Type Department Care Team (Late st Contact Info) Description 01/19/2025 10:30 AM EST Clinical Support [address] [address] 01/29/2025 9:00 AM EST Medication Management [address] [address] Swetha Mac, PharmD [address] [place] [phone] documented as of this encounter Visit Diagnoses Not on filedocumented in this encounter Additional Health Concerns Assessment Noted Time PHQ-9 Depression Total Score: 7 09/19/19 24 10:05 AM EDT documented as of this encounter Care Teams Rotary Drum Dyer Relationship Specialty Start Date End Date Mita Mcneil ANP [address] [place] [id number] PCP - General Family Medicine 10/12/21 documented as of this encounter
--- OUTSIDE RECORDS SUMMARY | 2025-01-11 15:55 | XMS_ITS | Encounter Summary ---
Author Organization [employer] Address [address] [place] [address] Care Team Providers Care Gasoline Pump Installer Name Role Phone Mita Mcneil Primary Care Provider [phone] Encounter Details Date Type Department Care Team (Latest Contact Info) Description 01/11/2025 Travel Social History Tobacco Use Types Packs/Day Years [...] or irritable 0 01/11/2025 11:57 AM Lawrence Segovai MA Feeling afraid as if somethi ng [...] Segovia [place] documented as of this encounter Plan of Treatment Upcoming Encounters Date Type Department Care Team (Late st Contact Info) Description 01/19/2025 10:30 AM EST Clinical Support [facility] MED[facility]INE [address] [place] [address] 01/29/2025 9:00 AM EST Medication Management [facility] [address] [place] [address] Swetha Mac, PharmD [address] [place] [address] documented as of this encounter Visit Diagnoses Not on filedocumented in this encounter Additional Health Concerns Assessment Noted Time PHQ-9 Depression Total Score: 16 025 11:56 AM EST documented as of this encounter Care Teams Gasoline Pump Installer Relationship Specialty Start Date End Date Mita Mcneil ANP [address] [place] [address] PCP - General Family Medicine 10/12/21 documented as of this encounter
--- OUTSIDE RECORDS SUMMARY | 2025-01-11 15:55 | XMS_ITS | Clinical Summary ---
Author Organization [employer] Address [address] [facility] [address] [place] [address] Care Team Providers Care Fertilizer Applicator Name Role Phone Mita Mcneil Primary Care Provider [phone] Allergies No known active allergies Medications * This document contains information received from the source organization and may not represent a complete record from that organization. Blood Pressure kitIndications: Essential hypertension 1 kit in the morning. 1 kit 023 Active polyethylene glycol, PEG, 3350 (MiraLax) 17 GM/SCOOP powderIndicatio ns:Chronic constipation take 1 scoop every day as needed for constipation, mixed with 8 oz. water, juice, soda, coffee or tea 510 g 2 023 Active polycarbophil (FiberCon) 625 MG tabletIndicatio ns:Constipation , unspecified constipation type 0.5-1 tab once daily as needed for constipation 90 tablet 1 025 Active Diclofenac Sodium (Voltaren) 1 % gelIndications: Chronic bilateral low back pain without sciatica Apply up to 4x/d to affected joint(s) for pain/swelling 100 g 2 025 Active acetaminophen (Tylenol Extra Strength) 500 MG tabletIndicatio ns:Chronic bilateral low back pain without sciatica Take 2 tablets (1,000 mg) by mouth every 8 (eight) hours if needed for mild pain or moderate pain. No more than 6 tabs per 24 hrs. 120 tablet 1 025 Active cyanocobalamin (Vitamin B-12) 1000 MCG/ML injectionIndica tions:B12 deficiency Inject 0.1 mL (100 mcg) into the muscle every 7 (seven) days. 4 mL 025 Active amLODIPine (Norvasc) 5 MG tabletIndicatio ns:Essential hypertension Take 1 tablet (5 mg) by mouth in the morning. 90 tablet 3 025 2025 Active ferrous sulfate 325 (65 Fe) MG tabletIndicatio ns:Anemia, unspecified type take 1 tablet by oral route every other day with vitamin C for iron deficiency anemia 90 tablet 1 Active lidocaine (Lidoderm) 5 % patchIndication s:Chronic bilateral low back pain without sciatica Apply 1 patch topically Once per day. Remove & discard patch within 12 hours or as directed by MD. 30 patch 2 Active omeprazole (PriLOSEC) [address] capsuleIndicati ons:Gastroesoph ageal reflux disease, unspecified whether esophagitis present Take 1 capsule (20 mg) by mouth before breakfast and before evening meal. Do not crush or chew. 180 capsule 1 025 2025 Active Cyanocobalamin 1000 MCG sublingual tabletIndicatio ns:B12 deficiency Place 1 tablet under the tongue Once per day. Do not start before February 08, 2025. 90 tablet 3 025 Active Ascorbic Acid (vitamin C) 250 MG tabletIndicatio ns:Anemia, unspecified type Take 1 tablet (250 mg) by mouth every other day. With ferrous sulfate (iron) 45 tablet 3 025 Active ferrous sulfate 325 (65 Fe) MG tabletIndicatio ns:Anemia, unspecified type TAKE 1 TABLET BY ORAL ROUTE EVERY OTHER DAY WITH VITAMIN C FOR IRON DEFICIENCY ANEMIA 90 tablet 1 025 2024 Discontinued(R eorder (will not trigger notification to Pharmacy)) Ascorbic Acid (vitamin C) 250 MG tabletIndicatio ns:Anemia, unspecified type Take 1 tablet (250 mg) by mouth every other day. 45 tablet 025 2024 Discontinued(R eorder (will not trigger notification to Pharmacy)) Cyanocobalamin (B-12) 1000 MCG tablet controlled-rele aseIndications: Cobalamin deficiency TOME 1 TABLETA POR VIA ORAL TODOS [place] 90 tablet 1 025 2024 Discontinued lisinopril-hydr oCHLOROthiazide 20-25 MG tabletIndicatio ns:Essential hypertension TOME 1 TABLETA POR VIA ORAL TODOS [place] 90 tablet 1 025 2024 Discontinued omeprazole (PriLOSEC) [address] capsuleIndicati ons:Epigastric pain Take 1 capsule (20 mg) by mouth before breakfast and before evening meal. Do not crush or chew. 180 capsule 1 025 2024 Discontinued(R eorder (will not trigger notification to Pharmacy)) Hospital, Clinic, or Other Facility Administered Medication Ordered Dose Route Frequency Start Date End Date Status cyanocobalamin (Vitamin B-12) injection 1,000 mcgIndications:B12 deficiency 1000 mcg IM Every 7 days 01/19/2025 02/15/2025 Active cyanocobalamin (Vitamin B-12) injection 1,000 mcgIndications:B12 deficiency 1000 mcg IM Every 7 days 01/11/2025 01/11/2025 Discontinued Active Problems Problem Noted Date Diagnosed Date Class 2 severe obesity with serious comorbidity and body mass index (BMI) of 38.0 to 38.9 in adult 01/11/2025 Gastroesophageal reflux disease 01/11/2025 Chronic bilateral low back pain without sciatica 01/11/2025 Unable to read or write 01/11/2025 Obesity (BMI 30-39.9) 05/27/2018 12/03/2022 B12 deficiency 06/03/2012 12/03/2022 Epigastric pain 06/03/2012 12/03/2022 Essential hypertension 06/03/2012 Impaired fasting glucose 06/03/2012 023 Microalbuminuria 06/03/2012 12/03/2022 Polysubstance abuse 06/03/2012 12/03/2022 Vitamin D deficiency 06/03/2012 12/03/2022 Impotence of organic origin 07/31/201111/18 Opioid dependence 07/27/2011 12/03/2022 Encounters * This document contains information received from the source organization and may not represent a complete record from that organization. Date Type Department Care Team Description 01/11/2025 11:00 AM EST Office Visit [facility] [address] [place] [phone] Mita Mcneil ANP Essential hypertension (Primary Dx); Class 2 severe obesity with serious comorbidity and body mass index (BMI) of 38.0 to 38.9 in adult, unspecified obesity type; Elevated serum creatinine; B12 deficiency; Anemia, unspecified type; Chronic bilateral low back pain without sciatica; Gastroesophageal reflux disease, unspecified whether esophagitis present; Unable to read or write; Depression, unspecified depression type; Anemia, unspecified type 01/11/2025 Telephone [facility] [address] [place] [phone] Mita Mcneil ANP 01/11/2025 Travel 01/08/2025 Telephone [facility] [address] [place] [phone] Mary Multani MA 01/04/2025 Patient Outreach [address] [address] Mita Mcneil ANP Pre-visit Planning (SDOH screening was completed on 03/10/2024) 11/24/[address] [phone] Mita Mcneil ANP Call Back Request 11/18/[address] [address] Mimi Valdoivnos RN 10/26/[address] [address] Mita Mcneil ANP chart prep 10/13/[address] [phone] Mita Mcneil ANP Essential hypertension from Last [...] Mass Index 38.6 01/11/2025 11:11 AM EST Plan of Treatment Upcoming Encounters Date Type Department Care Team (Late st Contact Info) Description 01/19/2025 10:30 AM EST Clinical Support [facility] [address] [place] [phone] 01/29/2025 9:00 AM EST Medication Management [facility] [address] [place] [phone] Swetha Mac, PharmD [address] [place] [address] Health Maintenance Due Date Last Done Comments CT Colonography 1971 FIT DNA/Cologuard 1971 FIT 1971 FOBT 1971 Sigmoidoscopy 1971 Pneumococcal Vaccine: 50+ Years (2 of 2 - PCV) 2021 02/16/2011 Zoster Vaccines (1 of 2) 2021 Colonoscopy 07/04/2023 07/03/2018 Colorectal Cancer Screening 07/04/2023 SDOH Screening 03/10/2025 03/10/2024 Alcohol/Substance Use Screening 03/24/2025 03/24/2024 Depression Monitoring 07/11/2025 01/11/2025, 025 Disability Screening 07/24/2025 07/24/2024 Influenza Vaccine (#1) 2025 , 03/30/2021, 04/17/2018, Additional history exists Postponed from 10/19/2024 (Patient Refused) COVID-19 Vaccine ( season) 2026 02/09/2022, 10/10/2020, 08/30/2020 Postponed from 10/19/2024 (Patient Refused) Tobacco Screening 01/11/2026 01/11/2025 Lipid Panel 11/18/2029 11/18/2024, 11/19, 04/11/2020 DTaP/Tdap/Td Vaccines (3 - Td or [...] Procedure Name Priority Date/Time Associated Diagnosis Comments IRON AND TOTAL IRON BINDING CAPACITY Routine 01/11/2025 12:07 PM EST Anemia, unspecified type CBC WITH AUTO DIFFERENTIAL Routine 01/11/2025 12:07 PM EST Anemia, unspecified type BASIC METABOLIC PANEL Routine 01/11/2025 12:07 PM EST Elevated serum creatinine CBC WITH AUTO DIFFERENTIAL Routine 11/18/2024 10:05 AM EDT Anemia, unspecified type HEPATIC FUNCTION PANEL Routine 11/18/2024 10:05 AM EDT Class 2 severe obesity with serious comorbidity and body mass index (BMI) of 36.0 to 36.9 in adult, unspecified obesity type TSH W/REFLEX TO FT4 Routine 11/18/2024 1 0:05 AM EDT Class 2 severe obesity with serious comorbidity and body mass index (BMI) of 36.0 to 36.9 in adult, unspecified obesity type BASIC METABOLIC PANEL Routine 11/18/2024 10:05 AM EDT Essential hypertension LIPID PANEL, STANDARD Routine 11/18/2024 10:05 AM EDT Healthcare maintenance HEMOGLOBIN A1C Routine 11/18/2024 10:05 AM EDT Impaired fasting glucose VITAMIN B12 Routine 11/18/2024 10:05 AM EDT Cobalamin deficiency HEPATITIS C AB W/REFL TO HCV RNA, QN, PCR Routine 12/07/2022 9:45 AM EDT Routine screening for STI (sexually transmitted infection) HIV ANTIBODY/ANTIGEN ([place] DPH) Routine 12/07/2022 9:45 AM EDT HM COLONOSCOPY Routine 07/03/2018 from Last 3 Months or Most Recently Relevant to Health Maintenance Results * (ABNORMAL) CBC auto differential (01/11/2025 12:07 PM EST) Only the most recent of2 resultswithin the time period is included. White Blood Count 9.8 4.8 - 10.8 X10*3/uL [facility] Red Blood Count 4.05(L) 4.60 - 5.80 X10*6/uL [facility] Hemoglobin 11.3(L) 14.0 - 18.0 g/dl [facility] Hematocrit 36.3(L) 42.0 - 52.0 % [facility] Mean Corpuscular Volume 89.6 80.0 - 98.0 fL [facility] Mean Corpuscular Hemoglobin 27.9 27.0 - 33.0 pg [facility] Mean Corpuscular HGB Conc 31.1 31.0 - 36.0 g/dl [facility] Red Cell Distribution Width 12.3 11.0 - 16.0 % [facility] Platelet Count 212 160 - 400 X10*3/uL [facility] Mean Platelet Volume 10.7 9.4 - 12.4 fL [facility] Neutrophils Percent Auto 72.5 45 - 73 % [facility] Imm Gran Pct Auto 0.3 0.0 - 0.4 % [facility] Lymphocytes Percent Auto 13.5(L) 20 - 40 % [facility] Monocytes Percent Auto 6.1 2 - 11 % [facility] Eosinophils Percent Auto 7.4(H) 0 - 4 % [facility] Basophils Percent Auto 0.2 0 - 2 % [facility] NRBC Pct Auto 0.0 0.0 - 0.2 /100WBC [facility] Neutrophils Absolute Auto 7.1 2.0 - 8.3 x10*3/uL [facility] Imm Gran Abs Auto 0.03 0.00 - 0.03 X10*3/uL [facility] Lymphocytes Absolute Auto 1.3 1.2 - 4.9 X10*3/uL [facility] Monocytes Absolute Auto 0.6 0.1 - 1.2 X10*3/uL [facility] Eosinophils Absolute Auto 0.7(H) 0.0 - 0.4 X10*3/uL [facility] Basophils Absolute Auto 0.0 0.0 - 0.2 X10*3/uL [facility] NRBC Abs Auto 0.000 0.0 - 0.012 X10*3/uL [facility] Blood Venous blood specimen / Unknown 01/11/2025 12:07 PM EST 01/11/2025 1:04 PM EST Mita Mcneil [facility] BLOOD ORDERABLES Final Resul t [facility] [address] [place] [phone] * (ABNORMAL) Iron And Total Iron Binding Capacity (01/11/2025 12:07 PM EST) Iron 41(L) 45 - 160 mcg/dL [facility] Total Iron Binding Capacity 268 228 - 428 mcg/dL [facility] Percent Iron Saturation 15 15 - 50 % [facility] Unsaturated Iron Binding 227 ug/dL [facility] Blood Venous blood specimen / Unknown 01/11/2025 12:07 PM EST 01/11/2025 1:04 PM EST Mita Mcneil ANP LAB BLOOD ORDERABLES Final Resul t Performing Organization Address City/[facility] Co de Phone Number [facility] [address] [place] [address] [phone] * (ABNORMAL) Basic Metabolic Panel (01/11/2025 12:07 PM EST) Only the most recent of2 resultswithin the time period is included. Pathologist [facility] Sodium 143 135 - 145 mmol/L [facility] Potassium 4.8 3.3 - 5.1 mmol/L [facility] Chloride 104 96 - 108 mmol/L [facility] Carbon Dioxide 27 22 - 29 mmol/L [facility] Anion Gap 17 12 - 20 [facility] Urea Nitrogen (BUN) 22(H) 9 - 16 mg/dL [facility] Creatinine, Serum 1.23 0.5 - 1.4 mg/dL [facility] Estimated Glomerular Filt Rate >60 [facility] Comment:Chronic Kidney Disea se: Estimated GFR < 60 mL/min/[id number] Kidney Disease: Estimated GFR < 15 mL/min/1.73m2 Glucose 94 60 - 115 mg/dL [facility] Calcium 10.0 8.4 - 10.2 mg/dL [facility] Blood Venous blood specimen / Unknown 01/11/2025 12:07 PM EST 01/11/2025 1:04 PM EST us Mita Mcneil ANP LAB BLOOD ORDERABLES Final Resul t [facility] [address] [place] [phone] * TSH W/Reflex to FT4 (11/18/2024 10:05 AM EDT) Pathologist [facility] TSH reflex Free T4 0.76 0.32 - 4.0 uIU/mL [facility] Blood Venous blood specimen / Unknown 11/18/2024 10:05 AM EDT 11/18/2024 10:55 AM EDT Mita Mcneil ANP LAB BLOOD ORDERABLES Final Resul t Performing Organization Address [facility] de Phone Number [facility] [address] [place] [phone] * Hemoglobin A1c (11/18/2024 10:05 AM EDT) [facility] Hemoglobin A1c 5.4 <6.0 % [facility] Comment:Hemoglobin A1C Refer ence Range Adults: 4.8 - 6.0 % Non diabetic: < 6.0 % Goal: < 7.0 %Additional Action Suggested: > 8.0 %Note: Hemoglobin A1c results are invalid for patients with abnormal amounts of HbF. Blood transfusions may impact the HbA1c concentration in the patient sample. Estimated Average Glucose 108 mg/dL [facility] Comment:eAG = Estimated ave rage glucose which is %A1C expressed asaverage glucose, using the formula of the [id number] Glucose study (ADAG), Diabetes Care, Vol.31,#8,Sep. 2007 Blood Venous blood specimen / Unknown 11/18/2024 10:05 AM EDT 11/18/2024 11:04 AM EDT Mita Mcneil ANP LAB BLOOD ORDERABLES Final Resul t Performing Organization Address [facility] Co de Phone Number [facility] [address] [place] [phone] * Vitamin B12 (11/18/2024 10:05 AM EDT) Pathologist [facility] Vitamin B12 229 200 - 900 pg/mL [facility] Comment:NORMAL 200-900 PG/ML INDETERMINATE 160-199 PG/ML DEFICIENT < 160 PG/ML Blood Venous blood specimen / Unknown 11/18/2024 10:05 AM EDT 11/18/2024 10:55 AM EDT Mita Mcneil [facility] LAB BLOOD ORDERABLES Final Resul t Performing Organization Address [facility] Co ks Phone Number [facility] [address] [place] [phone] * (ABNORMAL) Hepatic Function Panel (11/18/2024 10:05 AM EDT) Bilirubin, Total 0.4 0.0 - 1.0 mg/dL [facility] Bilirubin, Direct 0.2 0.0 - 0.5 mg/dL [facility] Aspartate Amino Transferase 36 5 - 37 U/L [facility] Alanine Aminotransferase 24 0 - 40 U/L [facility] Total Protein 8.0 6.5 - 8.0 g/dL [facility] Albumin Level 4.5 3.5 - 5.0 g/dL [facility] Alkaline Phosphatase 124(H) 39 - 117 U/L [facility] Blood Venous blood specimen / Unknown 11/18/2024 10:05 AM EDT 11/18/2024 10:55 AM EDT Mita Mcneil [facility] BLOOD ORDERABLES Final Resul t Performing Organization Address [facility] Co de Phone Number [facility] [address] [place] [phone] * (ABNORMAL) Lipid Panel, Standard (11/18/2024 10:05 AM EDT) Triglycerides 161(H) <150 mg/dL [facility] Comment:Desirable Triglyceri de: less than 150 mg/dLBorderline High Triglyceride 150-199 mg/dLHigh Triglyceride: 200-499 mg/dLVery High Triglyceride: greater than or equal to 5OO mg/dL Cholesterol 158 <200 mg/dL [facility] Comment:Desirable Cholestero l: less than 200 mg/dLBorderline High Cholesterol: 200-239 mg/dLHigh Cholesterol: greater than 239 mg/dL LDL Cholesterol Calculated 97 <100 mg/dL [facility] Comment:Desirable LDL: less than 100 mg/dLNear Optimal/Above Optimal LDL: 110- 129 mg/dLBorderline High LDL: 130-159 mg/dLHigh LDL: 160-189 mg/dLVery High LDL: greater than or equal to 190 mg/dL HDL Cholesterol 29(L) >40 mg/dL [facility] Comment:Desirable HDL: great er than 40 mg/dL Note: This HDL assay may give artificially low results in patients with liver disease. Blood Venous blood specimen / Unknown 11/18/2024 10:05 AM EDT 11/18/2024 10:55 AM EDT [facility] LAB BLOOD ORDERABLES Final Resul t [facility] [address] [place] [phone] * HIV Ab/Ag ([facility]) (12/07/2022 9:45 AM EDT) HIV AB/AG Nonreactive Nonreactive [facility] Comment:HIV-1 p24 Ag and/or HIV-1/HIV-2 Ab not detected.A test result that is nonreactive does not exclude thepossibility of exposure to or infection with HIV-1 and/orHIV-2. Nonreactive results in this assay for individualswith prior exposure to HIV-1 and/or HIV-2 may be due toantigen and antibody levels that are below the limit ofdetection of this assay.The [employer] HIV Ag/Ab Combo assay result andsupplemental assay results should be interpreted inconjunction with the patient's clinical presentation,history and other laboratory results. If the results areinconsistent with clinical evidence, additional testing issuggested to confirm the result. 12/07/2022 9:45 AM EDT 12/07/2022 11:24 AM EDT Mita Mcneil [facility] LAB BLOOD ORDERABLES Final Resul t Performing Organization Address [facility]/ZIP Co de Phone Number [facility] [address] [place] [phone] * Hepatitis C Antibody with Reflex to HCV, RNA, Quantitative, Real-Time PCR (12/07/2022 9:45 AM EDT) Hepatitis C Antibody Nonreactive Nonreactive [facility] Comment:Antibodies to HCV no t detected; does not exclude early acuteHCV infection. Blood Venous blood specimen / Unknown 12/07/2022 9:45 AM EDT 12/07/2022 11:24 AM EDT Mita Mcneil [facility] LAB BLOOD ORDERABLES Final Resul t Performing Organization Address [facility] Co de Phone Number [facility] [address] [place] [phone] * (ABNORMAL) Hm Colonoscopy (07/03/2018) Colonoscopy Abnormal(A ) Normal Historical Provider HEALTH MAINTENANCE Final Result from Last 3 Months or Most Recently Relevant to Health Maintenance Insurance [facility] C3 Care Teams Fertilizer Applicator Relationship Specialty Start Date End Date Mita Mcneil ANP [address] [place] [phone] PCP - General Family Medicine 10/12/21
--- OUTSIDE RECORDS SUMMARY | 2025-01-11 15:55 | XMS_ITS | Encounter Summary ---
Author Organization [employer] Address [address] [facility] [address] [place] [address] Care Team Providers Care Resident Engineer Name Role Phone Mita Mcneil Primary Care Provider [phone] Reason for Visit * Reason Comments Med Refill Encounter Details Date Type Department Care Team ([facility] st Contact Info) Description 10/13/2024 Refill [facility] [address] [place], [place] [phone] Mita Mcneil ANP [address] [place], [place] [phone] Essential hypertension Social History Tobacco Use Types [...] Description 01/19/2025 10:30 AM EST Clinical Support [address] [phone] 01/29/2025 9:00 AM EST Medication Management [address] [address] Swetha Mac, PharmD [address] [place] [address] documented as of this encounter Visit Diagnoses Diagnosis Essential hypertension Unspecified essential hypertension documented in this encounter Additional Health Concerns Assessment Noted Time PHQ-9 Depression Total Score: 7 09/19/19 24 10:05 AM EDT documented as of this encounter Care Teams Resident Engineer Relationship Specialty Start Date End Date Mita Mcneil ANP [address] [place] [phone] PCP - General Family Medicine 10/12/21 documented as of this encounter
[2025-01-11 19:16] LABS: Microalbum/Creatinine Ratio Ur 171.4 ug/mg cr (<30)
== END 2025-01-11 11:57 | disposition home or self-care (01) ==
LOC: HO.HHCL 11:56
PROVIDERS: PCP Nurse Practitioner Primary Care; Visit Provider Nurse Practitioner Primary Care
DX: I10 Essential (primary) hypertension (principal); D64.9 Anemia, unspecified; R79.89 Other specified abnormal findings of blood chemistry; R80.9 Proteinuria, unspecified
CPT/HCPCS: 36415; 80048; 82043; 82570; 83540; 85025